=== PATIENT | male | born 1960 | race Caucasian/White ===

== ENCOUNTER 2024-04-30 06:22 | Day surgery (SDC) | payer BC, SELFPAY | END 2024-04-30 13:19 | disposition home or self-care (01) | LOC: GI 06:22 | PROVIDERS: ATTENDING PHYSICIAN Specialist | DX: Z12.11 Encounter for screening for malignant neoplasm of colon (principal); Z86.0101 Personal history of adenomatous and serrated colon polyps; A63.0 Anogenital (venereal) warts; K63.5 Polyp of colon | CPT/HCPCS: 45385; 45380; 88305 ==

== ENCOUNTER → 2024-05-28 16:26 | Outpatient (REF) | payer BC, SELFPAY | LOC: CLAB 16:26 | PROVIDERS: ATTENDING PHYSICIAN Surgery | DX: A63.0 Anogenital (venereal) warts (principal) | CPT/HCPCS: 87624; 88112 ==

== ENCOUNTER → 2024-06-19 12:15 | Outpatient (REF) | payer BC, SELFPAY | LOC: CLAB 12:15 | PROVIDERS: ATTENDING PHYSICIAN Surgery | DX: A63.0 Anogenital (venereal) warts (principal) | CPT/HCPCS: 88304 ==

== ENCOUNTER → 2024-12-05 09:11 | Outpatient (REF) | payer BC, SELFPAY | LOC: HWRAD 09:11 | PROVIDERS: ATTENDING PHYSICIAN Otolaryngology; FAMILY PHYSICIAN Internal Medicine | DX: H69.93 Unspecified Eustachian tube disorder, bilateral (principal) | CPT/HCPCS: 70480 ==